=== PATIENT | female | born 1945 | race Caucasian/White ===

== ENCOUNTER 2021-07-27 12:21 | Outpatient (REF) | payer MEDICARE, SELFPAY ==
--- NOTE | ~2021-07-27 | XR_ITS ---
EXAMINATION: XR SHOULDER, RIGHT CLINICAL INFORMATION: Pain in right shoulder. COMPARISON: None TECHNIQUE: 3 views of the right shoulder. FINDINGS: Mild hypertrophic osteoarthritis of the acromioclavicular joint. Subacromial spur anteriorly. Glenohumeral joint normal. Incidental note is made of a wire-like metallic density and tubular density overlying the chest. This may be outside the patient. XR/XR shoulder RT min 2V IMPRESSION: Osteoarthritis of the right shoulder.
--- NOTE | ~2021-07-27 | XR_ITS ---
EXAMINATION: XR LUMBOSACRAL SPINE CLINICAL INFORMATION: Low back pain COMPARISON: None TECHNIQUE: Three views of the lumbosacral spine. FINDINGS: 5 nonrib-bearing lumbar vertebral bodies are visualized. There is minimal retrolisthesis of L2 on L3. Alignment is otherwise unremarkable. Lumbar vertebral body heights are maintained 18. There is scattered mild to moderate disc space narrowing throughout the lumbar spine with severe disc space narrowing at L5/S1. There are degenerative changes of the posterior elements of the lower lumbar spine. Osteophytes are present throughout the lumbar spine, most prominent at the L1/L2 level. Sacroiliac joints are grossly symmetric. Irregular pelvic calcifications are nonspecific but possibly surgical sales representative of degenerative fibroids. XR/XR lumbar spine 2-3V IMPRESSION: Moderate diffuse degenerative changes of the lumbar spine. No compression deformity.
[2021-07-27 14:14] LABS: Alanine Aminotransferase 24 U/L (0-31); Albumin Level 4.4 g/dL (3.5-5.0); Alkaline Phosphatase 58 U/L (39-117); Anion Gap 14 (12-20); Aspartate Amino Transferase 20 U/L (5-31); Bilirubin Total 0.6 mg/dL (0.0-1.0); Blood Urea Nitrogen 14 mg/dL (9-16); Calcium 9.7 mg/dL (8.4-10.2); Carbon Dioxide 27 mmol/L (22-29); Chloride 105 mmol/L (96-108); Cholesterol 196 mg/dL; Estimated Glomerular Filt Rate > 60; Glucose Fasting 97 mg/dL (60-99); HDL Cholesterol 46 mg/dL; LDL Cholesterol Calculated 115 mg/dl; Sodium 142 mmol/L (135-145); Total Protein 7.4 g/dL (6.5-8.0); Triglycerides 175 mg/dL
[2021-07-28 14:47] LABS: Vitamin D 25-OH Total 23.4 ng/mL (>30)
== END 2021-07-27 12:22 | disposition home or self-care (01) ==
LOC: HO.HMGCX 12:21
PROVIDERS: PCP Internal Medicine; Visit Provider Internal Medicine
DX: Z00.01 Encounter for general adult medical examination with abnormal findings (principal); E66.01 Morbid (severe) obesity due to excess calories; I10 Essential (primary) hypertension; I48.0 Paroxysmal atrial fibrillation; G89.29 Other chronic pain; M54.50 Low back pain, unspecified; M25.551 Pain in right hip
CPT/HCPCS: 36415; 72100; 73030; 80053; 80061; 82306

== ENCOUNTER 2023-02-06 12:26 | Outpatient (REF) | payer MEDICARE, SELFPAY ==
--- NOTE | ~2023-02-06 | MM_ITS ---
EXAMINATION: BONE DENSITOMETRY CLINICAL INDICATION: Asymptomatic menopausal state. COMPARISON: This is the patient's baseline examination. TECHNIQUE: Using a [employer] DXA System (software version: 13.1) manufactured by [employer], dual-energy x-ray absorptiometry was performed of the lumbar spine and left hip. The images are of good technical quality. Summary results are attached. FINDINGS: LEFT FEMUR, NECK: BMD 1.115 g/cm2, Z-score 1.8, T-score 0.6, normal. LEFT FEMUR, TOTAL: BMD 1.233 g/cm2, Z-score 2.7, T-score 1.8, normal. AP SPINE L1-L4: BMD 1.570 g/cm2, Z-score 3.8, T-score 3.2, normal. IDENTIFIED RISK FACTORS: Menopause, anticonvulsant, history of fracture (adult). HISTORY OF FRACTURE: Other. MEDICATIONS: Calcium supplements or multivitamin, vitamin D. MM/XR DEXA axial skeleton IMPRESSION: 1. DIAGNOSIS: Normal bone density based on the lowest T-score value of 0.6 in the femoral neck applying World Health Organization criteria. 2. 10-YEAR FRACTURE RISK PREDICTION, FRAX: According to the guidelines, FRAX calculation should only be performed on patients in the osteopenia bone density category. Therefore, FRAX was not performed on this patient. 3. Treatment Recommendations: NOF guidelines recommend consideration for treatment in postmenopausal women and men age 50 and older presenting with the following: -A hip or vertebral (clinical or morphometric) fracture. -T-score less than or equal to -2.5 at the femoral neck or spine after appropriate evaluation to exclude secondary causes. -Low bone mass at the hip or spine and a 10-year fracture probability by FRAX of greater than or equal to 3% for hip fracture or greater than or equal to 20% for major osteoporotic fracture based on the [place] adapted WHO algorithm. 4. Other Recommendations: All treatment decisions require clinical judgment and consideration of individual patient factors, including patient preferences, comorbidities, previous drug use, risk factors not captured in the FRAX model (e.g. frailty, falls, vitamin D deficiency, increased bone turnover, interval significant decline in bone density) and possible under or overestimation of fracture risk by FRAX. FUTURE SCAN RECOMMENDATION: People with diagnosed cases of osteoporosis or at high risk for fracture should have regular bone mineral density tests. For patients eligible for Medicare, routine testing is allowed once every 2 years. The testing frequency can be increased to one year for patients who have rapidly progressing disease, those who are receiving or discontinuing medical therapy to restore bone mass, or have additional risk factors.
--- NOTE | ~2023-02-06 | MM_ITS ---
EXAMINATION: MM SCREENING DIGITAL BREAST TOMOSYNTHESIS, BILATERAL CLINICAL INFORMATION: Screening. Asymptomatic. COMPARISON: Mammography: This study is compared with prior exams dating back to 2015. There are no mammograms between 2018 and 2022. TECHNIQUE: Digital breast tomosynthesis is performed in both the craniocaudal and mediolateral oblique views along with computer-aided detection (CAD). Synthesized 2D images are generated from the tomosynthesis. FINDINGS: There are scattered areas of fibroglandular density (ACR BI-RADS breast composition Category b). There are numerous calcifications in the upper outer quadrants of each breast which warrant additional mammographic imaging magnification. There are no significant masses or areas of architectural distortion in either breast. There is a cardiac loop recorder in the medial aspect of the left breast. MM/MM tomosynthesis screening BI IMPRESSION: Bilateral calcifications warrant additional imaging with magnification mammography. ASSESSMENT: BI-RADS BI-RADS 1 - Negative RECOMMENDATION: Additional views of both breasts. Radiology department staff will contact the patient for additional imaging. Additional Imaging required This examination should not preclude the clinical evaluation of a suspicious palpable abnormality. This patient's information was entered into a reminder system with a target due date for their next mammogram.
== END 2023-02-06 12:27 | disposition home or self-care (01) ==
LOC: HO.MAMMO 12:26
PROVIDERS: PCP Internal Medicine; Visit Provider Internal Medicine
DX: Z12.31 Encounter for screening mammogram for malignant neoplasm of breast (principal); Z13.820 Encounter for screening for osteoporosis; Z78.0 Asymptomatic menopausal state; Z87.39 Personal history of other diseases of the musculoskeletal system and connective tissue
CPT/HCPCS: 77063; 77067; 77080

== ENCOUNTER → 2023-02-06 12:45 | Outpatient (BNV) | payer MEDICARE, SELFPAY | PROVIDERS: PCP Internal Medicine; Visit Provider Radiology Diagnostic Radiology | DX: Z12.31 Encounter for screening mammogram for malignant neoplasm of breast (principal) | CPT/HCPCS: 77063; 77067 ==

== ENCOUNTER 2023-02-27 11:27 | Outpatient (AMB) | payer MEDICARE, SELFPAY ==
--- NOTE | 2023-02-27 11:58 | MHC.PC.OV ---
Vital Signs 02/27/23 12:01 BMI Reason not done Patient refused/unable BP 110/60 Blood Pressure Location Lt brachial Position Sitting Pulse 75 Pulse Source Pulse Oximeter Pulse Oximetry (%) 98 Oxygen Delivery Method Room Air Intake Visit Reasons: Rt shoulder pain due to a fall Intake Note: Pt is here today to f/u labs and c/o Rt shoulder pain due to a fall in the bathroom at home Allergies lipitor Allergy (Unknown, Uncoded 02/28/23 19:35) muscle pain Medication List - Last Reconciled 02/27/23 by Eli Wills MD acetaminophen ER (Tylenol Arthritis Pain) 1,300 mg PO Q8H PRN albuterol sulfate 90 mcg/actuation 2 puffs inhalation Q6H PRN amlodipine 10 mg PO DAILY Ca carb-Ca gluc-Mg ox-Mg gluco 500 mg calcium -250 mg (Calcium Magnesium) tabs PO cholecalciferol (vitamin D3) 50 mcg PO DAILY cyanocobalamin (vitamin B-12) 1,000 mcg PO DAILY fluticasone propionate 50 mcg/actuation 1 spray intranasal DAILY furosemide (Lasix) 20 mg PO DAILY gabapentin mg PO losartan 100 mg PO DAILY pyridoxine (vitamin B6) 100 mg PO ONCE rivaroxaban (Xarelto) 20 mg PO DAILY Tobacco use date assessed: 02/27/23 Fall risk assessment: 1 Fall in past year Last assessed Fall Risk: 02/27/23 Dental Screening Dental Screen Date: 02/27/23 Did you have a dental visit in the last 12 months?: Yes Did you have a dental problem in the last 6 months where you did not have access to dental care?: No Was dental information given to patient?: Patient has dentist HPI Rt shoulder pain due to a fall HPI Details 78-year-old lady here today complaining of persistent pain in her right shoulder, worse with doing overhead movement with right hand. Unable to do carry or lift anything heavy with her right hand. This started after she slipped in the bathroom and landed on her right side approximately a month ago. 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 Mother No problems noted. Brother Hypertension Atrial fibrillation Maternal Grandmother Breast cancer Social History Housing: House Patient Tobacco Use Status: Former Tobacco user Years Smoked: 15 yrs e-Cigarette/Vaping Use: Never Used service: No Current occupational status: retired Cognitive needs: No Hearing needs: No Vision needs: Yes Questionnaire Thrive Questionnaire Date Thrive assessed: 10/26/22 FENG-7 AMB Questionnaire FENG-7 Date FENG - 7 assessed: 10/26/22 Source: Developed by Drs. Jay Sommer, Roz Mckee, Wally Shabazz and colleagues, with an educational bernardino from [employer]. Review of Systems Const All systems reviewed & are unremarkable except as noted in HPI and below Physical exam (Primary Care) Vital Signs: Last Vital Signs Pulse 75 02/27/23 12:01 BP 110/60 02/27/23 12:01 Pulse Ox 98 02/27/23 12:01 Oxygen Delivery Method Room Air 02/27/23 12:01 Tobacco/Smoking Status: Tobacco use Status Tobacco use date assessed 02/27/23 02/27/23 12:01 Patient Tobacco Use Status Former Tobacco user 02/27/23 12:01 e-Cigarette/Vaping Use Never Used 02/27/23 12:01 Thrive Assessment: Date of Thrive Assessment Date Thrive assessed 10/26/22 02/27/23 12:01 Const General: comfortable, no acute distress, awake and Physically active Nutritional Appearance: obese HENMT Head: Yes normocephalic and Yes atraumatic Ears: hearing grossly normal bilaterally and external ears normal General nose exam: Normal external nose present Face and sinus: Yes face symmetric Mouth: Normal oral and palatal mucosa present, oropharynx normal and moist mucous membranes Resp Auscultation: clear to auscultation bilaterally Cardio Rate: regular rate Rhythm: regular rhythm Heart sounds: S1 normal heart sound present and S2 normal heart sound present Back/Spine/Pelvis Back: No back tenderness Skin General skin exam: no rashes or lesions noted Neuro General: no focal motor deficits Extrem Other: + Neer's test on right, no gross bone bone deformity noted Assessment and Plan Assessment & Plan (1) Pain in right shoulder: Code(s): M25.511 - Pain in right shoulder Plan: X-ray of right shoulder ordered and referred for physical therapy. Advised patient to notify as if no improvement with physical therapy and may warrant orthopedic consult Orders: Orders PT Evaluation and Treatment 02/27/23 M25.511 - Pain in right shoulder XR shoulder RT min 2V 02/27/23 M25.511 - Pain in right shoulder Coding Level of Care Code Est Pt Level 3 (71831) Diagnoses Pain in right shoulder M25.511
[2023-02-27 12:01] VITALS: BP 110/60; PULSE 75; O2SAT 98
== END 2023-02-27 12:22 | disposition home or self-care (01) ==
PROVIDERS: PCP Internal Medicine; Visit Provider Internal Medicine
DX: M25.511 Pain in right shoulder (principal)
CPT/HCPCS: 99213

== ENCOUNTER 2023-02-27 12:23 | Outpatient (REF) | payer MEDICARE, SELFPAY ==
--- NOTE | ~2023-02-27 | XR_ITS ---
EXAMINATION: XR SHOULDER, RIGHT CLINICAL INFORMATION: Right shoulder pain COMPARISON: 07/27/2021 TECHNIQUE: Four views of the right shoulder. FINDINGS: Redemonstration of moderate osteoarthritis with hypertrophic change involving the acromioclavicular joint. Subacromial spur. Degenerative changes in the imaged upper thoracic spine. Glenohumeral alignment is preserved. Faint soft tissue calcification adjacent to the greater tuberosity. XR/XR shoulder RT min 2V IMPRESSION: Osteoarthritis of the right shoulder.
== END 2023-02-27 12:24 | disposition home or self-care (01) ==
LOC: HO.HMGCX 12:23
PROVIDERS: PCP Internal Medicine; Visit Provider Internal Medicine
DX: M25.511 Pain in right shoulder (principal)
CPT/HCPCS: 73030

== ENCOUNTER 2023-03-06 13:11 | Outpatient (REF) | payer MEDICARE, SELFPAY ==
--- NOTE | ~2023-03-06 | MM_ITS ---
EXAMINATION: MM DIAGNOSTIC DIGITAL MAMMOGRAPHY, BILATERAL CLINICAL INFORMATION: Diagnostic for evaluation of bilateral calcifications upper outer quadrant of each breast. COMPARISON: Mammography: 02/06/2023, [facility] 03/31/2015, and 03/25/2014. TECHNIQUE: Digital mammography is performed in the following views: 2-D spot magnification views bilateral breasts in the CC projection x2, and ML projections x2. FINDINGS: There are scattered areas of fibroglandular density (ACR BI-RADS breast composition Category b). There are scattered regional loosely grouped calcifications within both breasts in the upper outer quadrants, similar to prior exams from 2017, 2014, and 2013, which are symmetric bilaterally and highly suggestive of benign sclerosing adenosis, although no prior magnification views are available to compare directly. The calcifications demonstrate loose grouping, and are predominantly either punctate or mildly pleomorphic. No linear or branching forms. No ductal distribution identified. The overall distribution and symmetry suggests benign sclerosing adenosis, which grossly appears similar to exams dating back to 2013. MM/MM diagnostic mammo BI IMPRESSION: Probably benign findings bilaterally relating to symmetric loosely grouped calcifications in the upper outer quadrants of both breasts, fairly classic appearance of sclerosing adenosis, which is also unchanged from 2014 grossly, although no prior magnification views are available for direct comparison. Recommend the patient return in 6 months for comparison magnification views of both breasts using similar technique. ASSESSMENT: BI-RADS BI-RADS 3 - Probably benign finding(s) - 6 month follow-up suggested RECOMMENDATION: 6 Month F/U This patient's information was entered into a reminder system with a target due date for their next mammogram.
== END 2023-03-06 13:12 | disposition home or self-care (01) ==
LOC: HO.MAMMO 13:11
PROVIDERS: PCP Internal Medicine; Visit Provider Internal Medicine
DX: R92.1 Mammographic calcification found on diagnostic imaging of breast (principal)
CPT/HCPCS: 77062; 77066

== ENCOUNTER → 2023-03-06 13:30 | Outpatient (BNV) | payer MEDICARE, SELFPAY | PROVIDERS: PCP Internal Medicine; Visit Provider Radiology Diagnostic Radiology | DX: R92.1 Mammographic calcification found on diagnostic imaging of breast (principal) | CPT/HCPCS: 77066 ==

== ENCOUNTER 2023-04-24 08:00 | Outpatient (RCR) | payer MEDICARE, SELFPAY ==
--- NOTE | 2023-04-12 08:42 | MHC.PT.EP ---
[facility] [place] Office [place] Office [place] Office [address] Reese Boyce [address] [phone] F: [phone] F: [phone] F: [phone] F: [phone] Physical Therapy Plan of Care Date of Evaluation: 04/12/23 Date of Surgery: n/a Diagnosis: pain in R shoulder Assessment: Patient is a 78 year old female presenting to PT with complaints of pain in her R shoulder. Pt reports onset of pain began about 3 months ago due to falling on her shoulder. She presents today with impairments in pain, ROM, shoulder strength, posture. 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 Pt expresses fdc goal of reducing pain, and is motivated to work towards this in PT. Clinical presentation today is most consistent with signs and sx associated with R shoulder pain and pt will benefit from skilled PT 2 week x 4 weeks to address the following problems and impairments noted upon evaluation: pain, ROM, shoulder strength, posture. These problems limit the patient with the following functional activities: reaching, lifting, ADLs, walking her dog. The prescribed treatment plan of care is medically necessary. Co-morbidities of HTN, afib were identified and taken into considerations of plan of care. Pt was educated on HEP, role of PT, prognosis, POC. Frequency and Duration: The patient will be seen 2 x week x 4 weeks Short Term Goals: Pt will demonstrate improved shoulder ROM to equal B in 2 weeks. Pt will demonstrate improved shoulder MMT strength by 1/3 grade in 2 weeks. Pt will demonstrate improved postural awareness by sitting with biomechanically correct posture without cues throughout session to improve overall postural function 2 weeks. Detention Goals: Pt will demonstrate improved SPADI score by 13 points in 4 weeks for improved functional mobility. Pt will demonstrate ability to walk her dog on a leash with min to no pain in 4 weeks for return to PLOF. Pt will demonstrate ability to reach and lift with min to no pain in 4 weeks for improved tolerance to house hold duties. Treatment Plan: Modalities to reduce pain, spasms and effusion. Manual therapy to restore motion and function. Therapeutic exercise to improve strength and flexibility. Neuromuscular re-education for posture and balance. Therapeutic activities to return to functional activities of daily living. Electronically signed by: Adry Soto, PT, DPT, ATC Please sign and return to therapist. Thank you for your referral.
--- NOTE | 2023-05-28 06:57 | MHC.PT.DC ---
[facility] [place] Office [place] Office [place] Office [address] Reese Boyce [address] [facility] [phone] F: [phone] F: [phone] F: [phone] F: [phone] Physical Therapy Discharge Report Diagnosis: pain in R shoulder Date of Surgery: n/a Date of Evaluation: 04/12/23 Date of Discharge: 05/28/23 Treatments to Date: 2 Cancellations to Date: 0 No Shows to Date: 0 Discharge Status: Discharge Summary: Pt has not returned to skilled PT in >30 days and therefore to be d/c per policy. Electronically signed by: Adry Soto, PT, DPT, ATC Please sign and return to therapist. Thank you for your referral.
== END 2023-05-28 06:57 | disposition home or self-care (01) ==
LOC: HO.PTCHIC 08:00
PROVIDERS: PCP Internal Medicine; Visit Provider Internal Medicine
DX: M25.511 Pain in right shoulder (principal)
CPT/HCPCS: 97110; 97161

== ENCOUNTER 2023-08-16 08:10 | Outpatient (AMB) | payer MEDICARE, SELFPAY ==
--- NOTE | 2023-08-16 08:14 | A.OFFPC_ITS ---
Vital Signs 08/16/23 08:16 BMI Reason not done Patient refused/unable BP 140/60 H Pulse 80 Pulse Source Pulse Oximeter Pulse Oximetry (%) 99 Oxygen Delivery Method Room Air Intake Visit Reasons: discuss recent u/s Intake Note: Pt is here today to discuss recent u/s results Allergies lipitor Allergy (Unknown, Uncoded 08/16/23 08:18) muscle pain Medication List - Last Reconciled 08/16/23 by Eli Wills MD acetaminophen ER (Tylenol Arthritis Pain) 1,300 mg PO Q8H PRN albuterol sulfate 90 mcg/actuation 2 puffs inhalation Q6H PRN amlodipine 10 mg PO DAILY Ca carb-Ca gluc-Mg ox-Mg gluco 500 mg calcium -250 mg (Calcium Magnesium) tabs PO cholecalciferol (vitamin D3) 50 mcg PO DAILY cyanocobalamin (vitamin B-12) 1,000 mcg PO DAILY fluticasone propionate 50 mcg/actuation 1 spray intranasal DAILY furosemide (Lasix) 20 mg PO DAILY gabapentin mg PO losartan 100 mg PO DAILY pyridoxine (vitamin B6) 100 mg PO ONCE rivaroxaban (Xarelto) 20 mg PO DAILY Tobacco use date assessed: 08/16/23 Fall risk assessment: 2 + Falls in past year Last assessed Fall Risk: 08/16/23 Dental Screening Dental Screen Date: 08/16/23 Did you have a dental visit in the last 12 months?: Yes Did you have a dental problem in the last 6 months where you did not have access to dental care?: Yes Was dental information given to patient?: Patient has dentist HPI discuss recent u/s HPI Details 78-year-old lady here today for follow-u p after a recent finding of a thyroid nodule on a CT angiography of chest 07/09/2023 done at [facility] . It measures 1.9 cm in the right thyroid. Patient denies having any symptoms of dysphagia, no pain on anterior neck. Latest TSH drawn at [facility] in November 2022 was 1.83 IU/mL. 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 Mother No problems noted. Brother Hypertension Atrial fibrillation Maternal Grandmother Breast cancer Social History Housing: House Patient Tobacco Use Status: Former Tobacco user Years Smoked: 15 yrs e-Cigarette/Vaping Use: Never Used service: No Current occupational status: retired Cognitive needs: No Hearing needs: No Vision needs: Yes Questionnaire PHQ-9 Over the last 2 weeks, how often have you been bothered by any of the following problems? 1. Little interest or pleasure in doing things: not at all 2. Feeling down, depressed, or hopeless: not at all 3. Trouble falling or staying asleep, or sleeping too much: not at all 4. Feeling tired or having little energy: not at all 5. Poor appetite or overeating: not at all 6. Feeling bad about yourself - or that you are a failure or have let yourself or your family down: not at all 7. Trouble concentrating on things, such as reading the newspaper or watching television: not at all 8. Moving or speaking so slowly that other people could have noticed. Or the opposite - being so fidgety or restless that you have been moving around a lot more than usual: not at all 9. Thoughts that you would be better off or of hurting yourself in some way: not at all Total score: 0 Depression Screening Interpretation: Negative Depression Screening Done: Yes 14510 - PHQ-9 Billing: Yes Source: Developed by Drs. Jay Sommer, Roz Mckee, Wally Shabazz and colleagues, with an educational bernardino from [employer]. Thrive Questionnaire Date Thrive assessed: 08/16/23 I am a: Patient What is your living situation today?: I have a steady place to live Within the past 12 months, did the food you bought not last and you didn't have the money to get more?: Never true Within the past 12 months, did you worry whether your food would run out before you got money to buy more?: Never true Do you have trouble paying for medicines?: No Do you have trouble getting transportation to medical appointments?: No Do you have trouble paying your heating and electricity bill?: No Do you have trouble taking care of your child, family member or friend?: No Do you have trouble with day-to-day activities such as bathing, preparing meals, shopping, managing finances, etc.?: No Are you currently unemployed and looking for a job?: No Are you interested in more education?: No THRIVE Score: 0 AUDIT C Alcohol Use Questionnaire (AUDIT-C) 1. How often do you have a drink containing alcohol?: Never Total Score: 0 FENG-7 AMB Questionnaire FENG-7 Date FENG - 7 assessed: 08/16/23 Feeling nervous, anxious, or on edge: 0 = Not at all Not being able to stop or control worryin = Not at all Worrying too much about different things: 0 = Not at all Trouble relaxin = Not at all Being so restless that it is hard to sit still: 0 = Not at all Becoming easily annoyed or irritable: 0 = Not at all Feeling afraid as if something awful might happen: 0 = Not at all Total FENG-7 score (0-4 normal; 5-9 mild; 10-14 moderate; 15-21 severe): 0 Source: Developed by Drs. Jay Sommer, Roz Mckee, Wally Shabazz and colleagues, with an educational bernardino from [employer]. FENG-7 Assessment Billing FENG-7 Assessment Tool: FENG-7 Assessment 56188 Review of Systems Const Denies body aches, Denies fatigue, Denies headache(s), Denies lethargy, Denies weight gain and Denies weight loss ENT Denies dysphagia, Denies dizziness, Denies headache(s) and Denies hoarseness Card Denies chest pain, Denies rapid heart rate, Denies lightheadedness and Denies dyspnea Resp Denies cough and Denies dyspnea GI Denies abdominal pain, Denies change in bowel habits and Denies dysphagia Musc Denies muscle weakness Neuro Denies dizziness, Denies headache(s) and Denies tremor(s) Psych Reports no additional complaints Endo Denies fatigue Physical exam (Primary Care) Vital Signs: Last Vital Signs Pulse 80 08/16/23 08:16 BP 140/60 H 08/16/23 08:16 Pulse Ox 99 08/16/23 08:16 Oxygen Delivery Method Room Air 08/16/23 08:16 Tobacco/Smoking Status: Tobacco use Status Tobacco use date assessed 08/16/23 08/16/23 08:18 Patient Tobacco Use Status Former Tobacco user 08/16/23 08:18 e-Cigarette/Vaping Use Never Used 08/16/23 08:18 PHQ-9: PHQ-9 Score PHQ-9: Total score 0 08/16/23 08:37 Depression Screening Interpretation: Negative Thrive Assessment: Date of Thrive Assessment Date Thrive assessed 08/16/23 08/16/23 08:18 Const General: no acute distress and alert Nutritional Appearance: obese Orientation/consciousness: patient oriented x3 HENMT Head: Yes normocephalic Face and sinus: Yes face symmetric Mouth: Normal oral and palatal mucosa present, oropharynx normal and moist mucous membranes Eyes General: appearance normal, both eyes and all related structures Neck Other: Thyroid gland nonpalpable Neck: Yes full ROM, Yes no lymphadenopathy and Yes supple Resp Auscultation: clear to auscultation bilaterally Cardio Rate: regular rate Rhythm: regular rhythm Heart sounds: S1 normal heart sound present and S2 normal heart sound present Skin General skin exam: no rashes or lesions noted Neuro General: patient oriented x3, gait normal, tone normal and moves all extremities Cranial nerves: Yes CN's II-XII intact bilaterally Cognition (Neuro): normal cognition Gait exam (Neuro): Normal gait present Motor exam (neuro): 5/5 motor strength present throughout Assessment and Plan Assessment & Plan (1) Thyroid nodule greater than or equal to 1 cm in diameter incidentally noted on imaging study: Code(s): E04.1 - Nontoxic single thyroid nodule Plan: Thyroid ultrasound ordered , reviewed test results from [facility] from November 2022 which showed TSH within normal limits. endocrine consult ordered Orders: Orders US thyroid 08/16/23 E04.1 - Nontoxic single thyroid nodule Referrals Endocrinology Referral E04.1 - Nontoxic single thyroid nodule Coding Level of Care Code Est Pt Level 4 (71508) Diagnoses Thyroid nodule greater than or equal to 1 cm in diameter incidentally noted on imaging study E04.1 Additional Codes FENG-7 Assessment Billing - FENG-7 Assessment Tool: FENG-7 Assessment 05780 ([id number])
[2023-08-16 08:16] VITALS: BP 140/60; PULSE 80; O2SAT 99
== END 2023-08-16 09:21 | disposition home or self-care (01) ==
LOC: HO.HMGC 08:10
PROVIDERS: PCP Internal Medicine; Visit Provider Internal Medicine
DX: E04.1 Nontoxic single thyroid nodule (principal)
CPT/HCPCS: 99214

== ENCOUNTER 2023-08-16 10:53 | Outpatient (REF) | payer MEDICARE, SELFPAY ==
--- NOTE | ~2023-08-16 | US_ITS ---
EXAMINATION: US THYROID CLINICAL INFORMATION: Incidental finding of a thyroid nodule on right lobe 1.[address] of the chest. COMPARISON: None available. TECHNIQUE: Linear transducer jerez-scale and color Doppler examination with attention to the region of the thyroid. FINDINGS: SIZE: Measurements of the thyroid lobes and nodules are given in sagittal, anteroposterior and transverse dimensions respectively. Right Thyroid Lobe: 4.3 x 2.6 x 2.1 cm, volume 11.8 mL. Parenchyma: The gland echotexture is heterogeneous. Thyroid vascularity is normal. Left Thyroid Lobe: 3.9 x 1.5 x 1.4 cm, volume 4.5 mL. Parenchyma: The gland echotexture is homogeneous. Thyroid vascularity is normal. Isthmus: 0.27 cm in maximum AP dimension. Estimated total number of nodules greater than or equal to 1 cm: 1. Hub Bander nodules are described as follows: 1. Location: Right inferior. Size: 0.90 x 0.45 x 0.13 cm, volume 0.27 mL. Nodule characteristics: Composition: Mixed cystic and solid (1). Echogenicity: Hypoechoic (2). Shape: Not taller than wide (0). Margins: Smooth (0). Echogenic Foci: None (0). ACR TI-RADS total points: 3 ACR TI-RADS category: 3 2. Location: Right mid. Size: 2.1 x 1.8 x 1.8 cm, volume 3.6 mL. Nodule characteristics: Composition: Mixed cystic and solid (1). Echogenicity: Anechoic (0). Shape: Not taller than wide (0). Margins: Smooth (0). Echogenic Foci: None (0). ACR TI-RADS total points: 1 ACR TI-RADS category: 0 NODES: No lymphadenopathy is seen in the tissue surrounding the thyroid gland. US/US thyroid IMPRESSION: No significant abnormality is seen. The thyroid nodule on the right is a simple benign-appearing cyst. No follow-up is needed. ACR TI-RADS RECOMMENDATION REFERENCE: Ultrasound-guided fine-needle aspiration, followup ultrasound, no further follow up. * TR1 (0 point) and TR2 (2 points): No FNA or follow up. * TR3 (3 points): FNA if more than or equal to 2.5 cm in maximum dimension, followup ultrasound in 1, 3 and 5 years if 1.5 to 2.4 cm in maximum dimension. * TR4 (4-6 points): FNA if more than or equal to 1.5 cm in maximum dimension, followup ultrasound in 1, 2, 3 and 5 years if 1 to 1.4 cm in maximum dimension. * TR5 (more than or equal to 7 points): FNA if more than or equal to 1 cm in maximum dimension, followup ultrasound every year for 5 years if 0.5 to 0.9 cm in maximum dimension. * TR3, TR4 or TR5 nodules that are below the size threshold for followup receive no follow up.
== END 2023-08-16 10:54 | disposition home or self-care (01) ==
LOC: HO.HMGCX 10:53
PROVIDERS: PCP Internal Medicine; Visit Provider Internal Medicine
DX: E04.1 Nontoxic single thyroid nodule (principal)
CPT/HCPCS: 76536

== ENCOUNTER 2023-08-30 12:34 | Outpatient (REF) | payer MEDICARE, SELFPAY ==
--- NOTE | ~2023-08-30 | MM_ITS ---
EXAMINATION: MM SCREENING DIGITAL BREAST TOMOSYNTHESIS, BILATERAL CLINICAL INFORMATION: Diagnostic 6 month follow-up (first) for evaluation of bilateral probably benign diffuse calcifications upper outer quadrant of each breast. COMPARISON: Mammography: 03/06/2023 (BI-RADS 3), and 02/06/2023 (BI-RADS 0). 09/20/2017, 03/31/2015, 03/15/2014 from [facility]. TECHNIQUE: Digital breast tomosynthesis is performed in both the craniocaudal and mediolateral oblique views along with computer-aided detection (CAD). Synthesized 2D images are generated from the tomosynthesis. In addition, 2-D digital spot magnification views were performed right CC, right MLO, left CC x2, and left ML projections. Right CC nipple in profile full field view was also provided. Left extra MLO full-field anterior compression view was provided. FINDINGS: There are scattered areas of fibroglandular density (ACR BI-RADS breast composition Category b). There are scattered regional loosely grouped regional calcifications within both breasts in the upper outer quadrants, similar to prior exams from 03/06/2023, 02/06/2023, 2017, 2014, and 2013, which are symmetric bilaterally and highly suggestive of benign sclerosing adenosis, without change on the recent magnification views. The calcifications demonstrate loose grouping, and are predominantly either punctate or minimally pleomorphic. No linear or branching forms. No ductal distribution identified. The overall distribution and symmetry suggests benign sclerosing adenosis, which grossly appears similar to exams dating back to 2014. There has been no aggressive change. Loop recorder again noted in the upper posteromedial left breast. No evidence of suspicious mass, new area of architectural distortion, skin or axillary abnormality. The overall parenchymal pattern of both breasts is stable from prior exams. MM/MM tomosynthesis screening BI IMPRESSION: No mammographic evidence of malignancy. There has been no significant interval change. -Stable symmetric loosely grouped regional calcifications in the upper outer quadrants of both breasts, fairly classic appearance of sclerosing adenosis, which is also unchanged from 2014 grossly. No aggressive changes identified. These remain probably benign, and six-month interval follow-up recommended to ensure stability to include spot magnification views in both breasts. ASSESSMENT: BI-RADS BI-RADS 3 - Probably benign finding(s) - 6 month follow-up suggested RECOMMENDATION: 6 Month F/U This examination should not preclude the clinical evaluation of a suspicious palpable abnormality. This patient's information was entered into a reminder system with a target due date for their next mammogram.
== END 2023-08-30 12:35 | disposition home or self-care (01) ==
LOC: HO.MAMMO 12:34
PROVIDERS: PCP Internal Medicine; Visit Provider Internal Medicine
DX: Z12.31 Encounter for screening mammogram for malignant neoplasm of breast (principal)
CPT/HCPCS: 77063; 77067

== ENCOUNTER → 2023-08-30 13:00 | Outpatient (BNV) | payer MEDICARE, SELFPAY | PROVIDERS: PCP Internal Medicine; Visit Provider Radiology Diagnostic Radiology | DX: Z12.31 Encounter for screening mammogram for malignant neoplasm of breast (principal) | CPT/HCPCS: 77063; 77067 ==

== ENCOUNTER 2024-03-04 10:37 | Outpatient (REF) | payer MEDICARE, SELFPAY ==
--- NOTE | ~2024-03-04 | MM_ITS ---
EXAMINATION: MM DIAGNOSTIC DIGITAL BREAST TOMOSYNTHESIS, BILATERAL CLINICAL INFORMATION: Six-month follow-up (second, for 1 year stability) bilateral symmetric regional calcifications upper outer breasts. COMPARISON: Mammography: 08/30/2023. 03/06/2023. 02/06/2023 (BI-RADS 0). -09/20/2017, 03/31/2015, 03/15/2014 from [facility]. TECHNIQUE: Digital breast tomosynthesis is performed in both the craniocaudal and mediolateral oblique views along with computer-aided detection (CAD). Synthesized 2D images are generated from the tomosynthesis. In addition to standard views, added full-field 3-D right CC view was obtained, as well as 2-D spot magnification CC and ML views of both breasts. FINDINGS: There are scattered areas of fibroglandular density (ACR BI-RADS breast composition Category b). Redemonstration of unchanged appearance and morphology of bilateral regional loosely grouped calcifications both breasts in the upper outer quadrant, similar to prior exams dating back to 2014. Findings are again highly suggestive of benignity, with no aggressive changes. One-year follow-up recommended. Loop recorder again noted in the upper posterior medial left breast. No evidence of suspicious mass, developing area of architectural distortion, suspicious new calcifications, or areas of architectural distortion in either breast. No skin or axillary abnormalities. MM/MM tomosynthesis diagnostic BI IMPRESSION: -No mammographic evidence of malignancy. There has been no significant interval change. -Stable symmetric loosely grouped regional calcifications in the upper outer quadrants of both breasts, fairly classic appearance of sclerosing adenosis, which is also unchanged from 2014 grossly. No aggressive changes identified. These remain probably benign, and 1 interval follow-up diagnostic mammography to include bilateral spot magnification views is recommended to establish a 2 year stability and definitive benignity. ASSESSMENT: BI-RADS BI-RADS 3 - Probably benign finding(s) - 12 month follow-up suggested RECOMMENDATION: 12 month diagnostic follow up Results were provided to the patient at time of visit by the technologist. This patient's information was entered into a reminder system with a target due date for their next mammogram. Electronically signed by: Eliud Kaplan MD 03/04/2024 12:17 PM EDT
== END 2024-03-04 10:38 | disposition home or self-care (01) ==
LOC: HO.MAMMO 10:37
PROVIDERS: Visit Provider Internal Medicine
DX: R92.1 Mammographic calcification found on diagnostic imaging of breast (principal)
CPT/HCPCS: 77062; 77066

== ENCOUNTER → 2024-03-04 11:00 | Outpatient (BNV) | payer MEDICARE, SELFPAY | PROVIDERS: Visit Provider Radiology Diagnostic Radiology | DX: R92.1 Mammographic calcification found on diagnostic imaging of breast (principal) | CPT/HCPCS: 77066; G0279 ==

== ENCOUNTER 2024-08-21 07:59 | Outpatient (REF) | payer MEDICARE, SELFPAY ==
--- OUTSIDE RECORDS SUMMARY | 2024-08-21 09:16 | XMS_ITS | Clinical Summary ---
Author Organization [address] [facility] Address [address] [place] [address] Phone Care Team Providers Care Mix House Operator Name Role Phone Eli Wills MD Primary Care Provider [phone] Allergies Active Allergy Reactions Criticality Noted Date [...] of breath) 06/21/2022 Chronic diastolic heart failure ([facility] V24, CM S/[facility] V28) 08/24/2021 Essential hypertension 07/29/2020 Morbid obesity ([facility] V24, [facility] V28) 2020 RONEN (obstructive sleep apnea) 07/29/2020 PAF (paroxysmal atrial fibri llation) ([facility] V24, [facility] V28) 07/29/2020 Encounters Date Type Department Care Team Description 08/05/2024 Telephone [facility] - [address] [place] [phone] Julia Ham MD Procedure (ILR Removal ) 07/24/2024 8:40 AM EDT Office Visit [facility] Cardiology [facility] - [address] [place] [phone] Rupali Vazquez PA PAF (paroxysmal atrial fibrillation) ([facility] V24, [facility] V28) (Primary Dx); Essential hypertension; RONEN (obstructive sleep apnea); Chronic diastolic heart failure (CMS/HCC V24, CMS/HCC V28); Morbid obesity ([facility]/HCC V24, CMS/HCC V28); Encounter for loop recorder at end of battery life from Last 3 Months Immunizations Name Administration Dates Next Due [facility] SARS-CoV-2 COVID-19, mRNA, LNP-S, preservative free 09/04/2020,08/14/2020 [...] GEMUSE QTc 443 ms GEMUSE P Wave Holt 74 degrees GEMUSE R Holt -43 degrees GEMUSE T Holt 10 degrees GEMUSE ECG Interpretation Sinus bradycardia [...] Documents on File Type Date Recorded 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
[2024-08-21 10:09] LABS: MANUAL DIFF FLAG NO
[2024-08-21 10:22] LABS: Basophils Percent Auto 0.6 % (0-2); Eosinophils Absolute Auto 0.3 X10*3/uL (0.0-0.4); Eosinophils Percent Auto 3.6 % (0-4); Hematocrit 43.6 % (37.0-47.0); Hemoglobin 14.9 g/dl (12.0-16.0); Imm Gran Abs Auto 0.02 X10*3/uL (0.00-0.03); Imm Gran Pct Auto 0.3 % (0.0-0.4); Lymphocytes Absolute Auto 2.3 X10*3/uL (1.2-4.9); Lymphocytes Percent Auto 32.8 % (20-40); Mean Corpuscular HGB Conc 34.2 g/dl (31.0-35.0); Mean Corpuscular Volume 93.6 fL (80.0-98.0); Mean Platelet Volume 9.6 fL (9.4-12.3); Monocytes Absolute Auto 0.7 X10*3/uL (0.1-1.2); Monocytes Percent Auto 10.2 % (2-11); Neutrophils Absolute Auto 3.6 x10*3/uL (2.0-8.3); Neutrophils Percent Auto 52.5 % (45-73); Platelet Count 312 X10*3/uL (160-400); Red Blood Count 4.66 X10*6/uL (4.20-5.50); Red Cell Distribution Width 12.4 % (11.0-16.0); White Blood Count 6.9 X10*3/uL (4.8-10.8)
[2024-08-21 12:10] LABS: Alanine Aminotransferase 38 U/L (0-31); Anion Gap 14 (12-20); Aspartate Amino Transferase 33 U/L (5-31); Blood Urea Nitrogen 15 mg/dL (9-16); Calcium 9.8 mg/dL (8.4-10.2); Carbon Dioxide 25 mmol/L (22-29); Chloride 106 mmol/L (96-108); Cholesterol 214 mg/dL (<200); Estimated Glomerular Filt Rate > 60; Glucose Fasting 96 mg/dL (60-99); HDL Cholesterol 50 mg/dL (>40); LDL Cholesterol Calculated 121 mg/dL (<100); Sodium 141 mmol/L (135-145); TSH reflex Free T4 1.45 uIU/mL (0.32-4.0); Triglycerides 216 mg/dL (<150); Vitamin D 25-OH Total 24.2 ng/mL (>30)
== END 2024-08-21 08:00 | disposition home or self-care (01) ==
LOC: HO.HMGCLDS 07:59
PROVIDERS: PCP Internal Medicine; Visit Provider Internal Medicine
DX: J01.90 Acute sinusitis, unspecified (principal); I10 Essential (primary) hypertension; E66.01 Morbid (severe) obesity due to excess calories; Z68.41 Body mass index [BMI] 40.0-44.9, adult; E04.1 Nontoxic single thyroid nodule; R09.81 Nasal congestion; I48.0 Paroxysmal atrial fibrillation; Z79.01 Long term (current) use of anticoagulants; Z79.2 Long term (current) use of antibiotics; Z96.653 Presence of artificial knee joint, bilateral
CPT/HCPCS: 36415; 80048; 80061; 82306; 84443; 84450; 84460; 85025; 96127; 99212

== ENCOUNTER 2024-08-21 07:59 | Outpatient (AMB) | payer MEDICARE, SELFPAY ==
--- NOTE | 2024-08-21 08:06 | MHC.PC.OV ---
Vital Signs 08/21/24 08:08 Height 5 ft 10 in Weight 289 lb BMI 41.5 BP 112/70 Blood Pressure Location Rt brachial Position Sitting Respiration 17 Pulse 66 Pulse Source Pulse Oximeter Temp 97.5 F Temp Source Oral Pulse Oximetry (%) 96 Oxygen Delivery Method Room Air Intake Visit Reasons: Blood pressure and Cardiac Pressure check Allergies lipitor Allergy (Unknown, Uncoded 08/21/24 08:22) muscle pain Medication List - Last Reconciled 08/21/24 by Eli Wills MD acetaminophen ER (Tylenol Arthritis Pain) 1,300 mg PO Q8H PRN albuterol sulfate 90 mcg/actuation 2 puffs inhalation Q6H PRN amlodipine 10 mg PO DAILY calcium carb,gluc-mag gluc,ox 500 mg calcium- 250 mg (Calcium Magnesium) tabs PO cholecalciferol (vitamin D3) 50 mcg PO DAILY cyanocobalamin (vitamin B-12) 1,000 mcg PO DAILY fluticasone propionate 50 mcg/actuation 1 spray intranasal DAILY furosemide (Lasix) 20 mg PO DAILY gabapentin mg PO losartan 100 mg PO DAILY pyridoxine (vitamin B6) 100 mg PO ONCE rivaroxaban (Xarelto) 20 mg PO DAILY sotalol 120 mg PO BID Tobacco use date assessed: 08/21/24 Fall risk assessment: No Falls in past year Last assessed Fall Risk: 08/21/24 Dental Screening Dental Screen Date: 08/21/24 Did you have a dental visit in the last 12 months?: Yes Did you have a dental problem in the last 6 months where you did not have access to dental care?: Yes Was dental information given to patient?: Patient has dentist HPI Blood pressure and Cardiac Pressure check HPI Details 79-year-old lady with history of paroxysmal atrial fibrillation status post cardiac ablation currently on sotalol and Xarelto, has bilateral osteoarthritis status post bilateral knee arthroplasty needing antibiotic prophylaxis prior to dental procedure, has obstructive sleep apnea noncompliant with CPAP, morbid obesity, and hypertension, here today complaining of frontal headaches, which has been present now on and off for the last several days. Initially thought that it was her blood pressure being elevated. Blood pressure here however is within normal limits. Headache is accompanied by nasal congestion and postnasal drainage. She has bee taking cetirizine only every now and then but has not been using it recently. She also has Flonase at home but ran out of her medication. Denies any fever, no lightheadedness, no shortness of breath or chest pain . She has an appointment to see her new orthopedic surgeon but needs a prescription refill for her antibiotic prophylaxis prior to dental work, was taking amoxicillin in the past. Recently saw her performance management consultant, Dr. Sharpe who continued her on her Xarelto and sotalol and referred her to weight management for help with losing weight. [facility] Medical History (Updated 08/21/24 @ 08:45 by Eli Wills MD) Need for antibiotic prophylaxis for dental procedure Anticoagulated on Xarelto Thyroid nodule greater than or equal to 1 cm in diameter incidentally noted on imaging study Immunization refused Refused pneumococcal vaccination History of atrial fibrillation Tick bite Hx of osteopenia Post-nasal drainage History of cardioversion Peripheral neuropathy Morbid obesity Essential hypertension Noncompliance with CPAP treatment Obstructive sleep apnea hypopnea, severe Paroxysmal atrial fibrillation Infection due to COVID-19 virus 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 Mother No problems noted. Brother Hypertension Atrial fibrillation Maternal Grandmother Breast cancer Social History Housing: House Patient Tobacco Use Status: Former Tobacco user Years Smoked: 15 yrs e-Cigarette/Vaping Use: Never Used service: No Current occupational status: retired Cognitive needs: No Hearing needs: No Vision needs: Yes Questionnaire PHQ-9 Over the last 2 weeks, how often have you been bothered by any of the following problems? 1. Little interest or pleasure in doing things: not at all 2. Feeling down, depressed, or hopeless: not at all 3. Trouble falling or staying asleep, or sleeping too much: not at all 4. Feeling tired or having little energy: several days 5. Poor appetite or overeating: several days 6. Feeling bad about yourself - or that you are a failure or have let yourself or your family down: several days 7. Trouble concentrating on things, such as reading the newspaper or watching television: not at all 8. Moving or speaking so slowly that other people could have noticed. Or the opposite - being so fidgety or restless that you have been moving around a lot more than usual: not at all 9. Thoughts that you would be better off or of hurting yourself in some way: not at all Total score: 3 Depression Screening Interpretation: Negative Depression Screening Done: Yes 57946 - PHQ-9 Billing: Yes Source: Developed by Drs. Jay Sommer, Roz Mckee, Wally Shabazz and colleagues, with an educational bernardino from [employer]. Thrive Questionnaire Date Thrive assessed: 08/21/24 I am a: Patient What is your living situation today?: I have a steady place to live Within the past 12 months, did the food you bought not last and you didn't have the money to get more?: Never true Within the past 12 months, did you worry whether your food would run out before you got money to buy more?: Never true Do you have trouble paying for medicines?: No Do you have trouble getting transportation to medical appointments?: No Do you have trouble paying your heating and electricity bill?: No Do you have trouble taking care of your child, family member or friend?: No Do you have trouble with day-to-day activities such as bathing, preparing meals, shopping, managing finances, etc.?: No Are you currently unemployed and looking for a job?: No Are you interested in more education?: No Please select the resources that you would like help with: None Currently or been in a relationship where the following occur: No concerns reported THRIVE Score: 0 AUDIT C Alcohol Use Questionnaire (AUDIT-C) 1. How often do you have a drink containing alcohol?: Monthly or less 2. How many drinks containing alcohol do you have on a typical day when you are drinking?: 1 or 2 3. How often do you have six or more drinks on one occasion?: Never Total Score: 1 FENG-7 AMB Questionnaire FENG-7 Date FENG - 7 assessed: 08/21/24 Feeling nervous, anxious, or on edge: 1 = Several days Not being able to stop or control worryin = Several days Worrying too much about different things: 1 = Several days Trouble relaxin = Several days Being so restless that it is hard to sit still: 0 = Not at all Becoming easily annoyed or irritable: 1 = Several days Feeling afraid as if something awful might happen: 0 = Not at all Total FENG-7 score (0-4 normal; 5-9 mild; 10-14 moderate; 15-21 severe): 5 Source: Developed by Drs. Jay Sommer, Roz Mckee, Wally Shabazz and colleagues, with an educational bernardino from [employer]. FENG-7 Assessment Billing FENG-7 Assessment Tool: FENG-7 Assessment 09316 Physical exam (Primary Care) Vital Signs: Last Vital Signs Temp 97.5 F 08/21/24 08:08 Pulse 66 08/21/24 08:08 Resp 17 08/21/24 08:08 BP 112/70 08/21/24 08:08 Pulse Ox 96 08/21/24 08:08 Oxygen Delivery Method Room Air 08/21/24 08:08 BMI result Body Mass Index 41.5 Tobacco/Smoking Status: Tobacco use Status Tobacco use date assessed 08/21/24 08/21/24 08:12 Patient Tobacco Use Status Former Tobacco user 08/21/24 08:12 e-Cigarette/Vaping Use Never Used 08/21/24 08:12 PHQ-9: PHQ-9 Score PHQ-9: Total score 3 08/21/24 08:12 Depression Screening Interpretation: Negative Thrive Assessment: Date of Thrive Assessment Date Thrive assessed 08/21/24 08/21/24 08:12 Currently or been in a relationship where the following occur: No concerns reported Const Other: Alert oriented x3, no acute distress noted ambulatory with normal gait Nutritional Appearance: obese morbidly obese HENVA Other: Tenderness on palpation over frontal and maxillary sinus Ears: external ears normal, TM's normal bilaterally and EAC's normal General nose exam: Normal external nose present and Abnormal mucous membranes and turbinates present (Swollen nasal mucosa) erythematous Mouth: Normal oral and palatal mucosa present, oropharynx normal and moist mucous membranes Neck Neck: Yes full ROM, Yes no lymphadenopathy and Yes supple Thyroid: Thyroid normal (Nonpalpable) Resp Auscultation: clear to auscultation bilaterally Cardio Other: S1-S2 present regular rate and rhythm GI Other: Normal bowel sounds, soft, nontender, obese, no mass palpated Coding Level of Care Code Est Pt Level 4 (88225) Complex EM visit Add On G2211 Diagnoses Acute sinusitis J01.90 Essential hypertension I10 Morbid obesity E66.01 Thyroid nodule greater than or equal to 1 cm in diameter incidentally noted on imaging study E04.1 Anticoagulated on Xarelto Z79.01 Need for antibiotic prophylaxis for dental procedure Z79.2 Nasal congestion R09.81 Additional Codes PHQ-9 - 48118 - PHQ-9 Billing: Yes ([id number]) FENG-7 Assessment Billing - FENG-7 Assessment Tool: FENG-7 Assessment 54213 ([id number]) Assessment & Plan Assessment & Plan (1) Acute sinusitis: Code(s): J01.90 - Acute sinusitis, unspecified Plan: Prescription sent for amoxicillin-clavulanic acid, 875 mg-125 mg to take 1 every 12 hours for 10 days. Take it always with food. (2) Essential hypertension: Code(s): I10 - Essential (primary) hypertension Category: Medical Plan: Blood pressure at goal of less than 130/80. Continue with current medication. Reinforced importance of following a low sodium diet, getting regular exercise, and lowering stress levels. (3) Morbid obesity: Code(s): E66.01 - Morbid (severe) obesity due to excess calories Category: Medical Plan: Patient has been referred by her performance management consultant to weight management, will check fasting glucose and lipids (4) Thyroid nodule greater than or equal to 1 cm in diameter incidentally noted on imaging study: Code(s): E04.1 - Nontoxic single thyroid nodule Category: Medical Plan: Will check TSH (5) Anticoagulated on Xarelto: Code(s): Z79.01 - penitentiary (current) use of anticoagulants Category: Medical Plan: CBC with differential ordered (6) Need for antibiotic prophylaxis for dental procedure: Code(s): Z79.2 - 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 (7) Nasal congestion: Code(s): R09.81 - Nasal congestion Category: Medical Plan: Refill sent for fluticasone nasal spray, instill 1-2 sprays per nostril twice a day as needed. Continue with cetirizine 10 mg at bedtime. Orders: Orders Basic Metabolic Panel Fasting Today E04.1 - Nontoxic single thyroid nodule, E66.01 - Morbid (severe) obesity due to excess calories, I10 - Essential (primary) hypertension, Z79.01 - termite control servicer (current) use of anticoagulants Aspartate Amino Transferase Today E04.1 - Nontoxic single thyroid nodule, E66.01 - Morbid (severe) obesity due to excess calories, I10 - Essential (primary) hypertension, Z79.01 - termite control servicer (current) use of anticoagulants TSH reflex Free T4 Today E04.1 - Nontoxic single thyroid nodule, E66.01 - Morbid (severe) obesity due to excess calories, I10 - Essential (primary) hypertension, Z79.01 - penitentiary (current) use of anticoagulants Alanine Aminotransferase Today E04.1 - Nontoxic single thyroid nodule, E66.01 - Morbid (severe) obesity due to excess calories, I10 - Essential (primary) hypertension, Z79.01 - penitentiary (current) use of anticoagulants Complete Blood Count Auto Diff Today E04.1 - Nontoxic single thyroid nodule, E66.01 - Morbid (severe) obesity due to excess calories, I10 - Essential (primary) hypertension, Z79.01 - termite control servicer (current) use of anticoagulants Lipid Panel Today E04.1 - Nontoxic single thyroid nodule, E66.01 - Morbid (severe) obesity due to excess calories, I10 - Essential (primary) hypertension, Z79.01 - termite control servicer (current) use of anticoagulants Vitamin D 25-OH Total Today E04.1 - Nontoxic single thyroid nodule, E66.01 - Morbid (severe) obesity due to excess calories, I10 - Essential (primary) hypertension, Z79.01 - termite control servicer (current) use of anticoagulants Medications: New amoxicillin-pot clavulanate 875-125 mg 1 tab PO Q12H 10 days 20 tabs 0RF J01.90 - Acute sinusitis, unspecified amoxicillin Take 4 capsules 1 hour Before dental procedure 2,000 mg (4 x 500 mg) PO ONCE 4 caps 4RF Z96.653 - Presence of artificial knee joint, bilateral Refilled fluticasone propionate 50 mcg/actuation 1 spray intranasal DAILY 16 mL 5RF
--- OUTSIDE RECORDS SUMMARY | 2024-08-21 08:06 | XMS_ITS | Clinical Summary ---
Author Organization 300 [facility] Address [address] [place] [address] Phone Care Team Providers Care Package Lift Operator Name Role Phone Eli Wills MD Primary Care Provider Allergies Active Allergy Reactions Criticality Noted Date Comments Atorvastatin Calcium 06/12/2024 Lisinopril 06/12/2024 Medications ascorbic acid (VITAMIN C) 1,000 mg tablet Take 1 Tab by mouth daily. Active gabapentin (NEURONTIN) 400 mg capsule Take 400 mg by mouth 4 times daily. Active rivaroxaban (Xarelto) 20 mg tablet Take 20 mg by mouth daily. 08/09/19 24 Active TURMERIC ORAL Take by mouth daily. Active CHOLECALCIFERO L, VITAMIN D3, ORAL VITAMIN D, CHOLECALCIF DONTE, OR Take 1 Tab by mouth daily Active vitamin E, dl,tocopheryl acet, (vitamin E, dl, acetate,) 45 mg (100 unit) capsule Take 1 Cap by mouth daily. Active sotaloL (BETAPACE) 120 mg tablet Take 1 tablet (120 mg total) by mouth 2 (two) times a day. 180 tablet 2 07/25/19 25 026 Active furosemide (LASIX) 20 mg tablet Take 1 tablet (20 mg total) by mouth 1 (one) time each day. 90 each 2 07/25/19 25 026 Active losartan (COZAAR) 100 mg tablet TAKE 1 TABLET DAILY 90 tablet 3 08/06/19 Active furosemide (LASIX) 20 mg tablet TAKE 1 TABLET DAILY 01/30/20 24 025 Discontinued(Re order) losartan (COZAAR) 100 mg tablet TAKE 1 TABLET DAILY 08/13/19 24 025 Discontinued(Re order) sotaloL (BETAPACE) 120 mg tablet Take 1 Tablet by mouth 2 times daily. 12/19/19 24 025 Discontinued(Re order) losartan (COZAAR) 100 mg tablet Take 1 tablet (100 mg total) by mouth 1 (one) time each day. 90 each 2 07/25/19 025 Discontinued Active Problems Problem Noted Date Diagnosed Date Encounter for loop recorder at end of battery li fe 07/24/2024 Fatigue 08/09/2023 SOB (shortness of breath) 06/21/2022 Chronic diastolic heart failure ([facility] V24, CM S/[facility] V28) 08/24/2021 Essential hypertension 07/29/2020 Morbid obesity ([facility] V24, CMS/[facility] V28) 2020 RONEN (obstructive sleep apnea) 07/29/2020 PAF (paroxysmal atrial fibri llation) ([facility] V24, CMS/[facility] V28) 07/29/2020 Encounters Date Type Department Care Team Description 08/05/2024 Telephone [facility] - [address] [place] [phone] Julia Ham MD Procedure (ILR Removal ) 07/24/2024 8:40 AM EDT Office Visit [facility] Cardiology [facility] - [address] [place] [phone] Rupali Vazquez PA PAF (paroxysmal atrial fibrillation) ([facility] V24, CMS/[facility] V28) (Primary Dx); Essential hypertension; RONEN (obstructive sleep apnea); Chronic diastolic heart failure (CMS/HCC V24, CMS/HCC V28); Morbid obesity ([facility]/HCC V24, CMS/HCC V28); Encounter for loop recorder at end of battery life from Last 3 Months Immunizations Name Administration Dates Next Due [facility] SARS-CoV-2 COVID-19, mRNA, LNP-S, preservative free 09/04/2020,08/14/2020 Social History Tobacco Use Types Packs/Day Years Used Date Smoking Tobacco: Former Cigarettes Q uit: 07/30/1995 Smokeless Tobacco: Never Tobacco Cessation:Counseling Given: Not Answered Alcohol Use Standard Drinks/Week Comments Yes 0 (1 standard drink = 0.6 oz pur e alcohol) Comments Unknown Sex and Gender Information Value Date Recorded Sex Assigned at Not on file Legal Sex Female 4:14 PM EST Gender Identity Not on file Sexual Orientation Not on file Obstetrics History Last Filed Vital Signs Vital Sign Reading Time Taken Comments Blood Pressure 140/82 07/24/2024 8:33 AM EDT Pulse 57 07/24/2024 8:33 AM EDT Temperature - - Respiratory Rate - - Oxygen Saturation 96% 07/24/2024 8:33 AM EDT Inhaled Oxygen Concentration - - Weight 131 kg (288 lb) 07/24/2024 8:33 AM EDT Height 175.3 cm (5' 9 ) 07/24/2024 8:33 AM EDT Body Mass Index 42.53 07/24/2024 8:33 AM EDT Plan of Treatment Health Maintenance Due Date Last Done Comments Pneumococcal Vaccine: 50+ Years (1 of 2 - PCV) 1966 Zoster Vaccines (1 of 2) 1997 RSV Immunization Adult Patients (1 - 1-dose 75+ series) 2022 Cholesterol Screening (Lipid Panel) 04/15/2022 Depression Screening 04/15/2022 Falls Risk Assessment 04/15/2022 Hepatitis C Screening 04/15/2022 Medicare Annual Wellness Visit 04/15/2022 Osteoporosis Screening (Bone Density Screening) 04/15/2022 Social Influencers of Health Screening 04/15/2022 Hypertension/CHF/CAD Annual BMP Blood Test 04/16/2022 COVID-19 Vaccine (3 - 2023-2 5 season) 2024 09/04/2020, 08/14/2020 DTaP,Tdap,and Td Vaccines (2 - Td or Tdap) 10/28/2024 10/28/2014 Influenza Vaccine (Season Ended) 2025 HIB Vaccines Aged Out No longer eligi ble based on patient's age to complete this topic HPV Vaccines Aged Out No longer eligi ble based on patient's age to complete this topic Hepatitis A Vaccines Aged Out No long er eligible based on patient's age to complete this topic Hepatitis B Vaccines Aged Out No long er eligible based on patient's age to complete this topic IPV Vaccines Aged Out No longer eligi ble based on patient's age to complete this topic MMR Vaccines Aged Out No longer eligi ble based on patient's age to complete this topic Meningococcal ACWY Vaccine Aged Out N o longer eligible based on patient's age to complete this topic Meningococcal B Vaccine Aged Out No l onger eligible based on patient's age to complete this topic RSV Immunization Patients Under 20 months Aged Out No longer eligible b ased on patient's age to complete this topic Varicella Vaccines Aged Out No longer eligible based on patient's age to complete this topic Procedures Procedure Name Priority Date/Time Associated Diagnosis Comments ECG 12-LEAD Routine 07/24/2024 8:58 AM EDT PAF (paroxysmal atrial fibrillation) (CMS/HCC V24, CMS/HCC V28) from Last 3 Months Results * ECG 12 lead (07/24/2024 8:58 AM EDT) Ventricular Rate ECG 57 BPM GEMUSE Atrial Rate 57 BPM GEMUSE P-R Interval 190 ms GEMUSE QRS Duration 114 ms GEMUSE Q-T Interval 456 ms GEMUSE QTc 443 ms GEMUSE P Wave Menan 74 degrees GEMUSE R Menan -43 degrees GEMUSE T Menan 10 degrees GEMUSE ECG Interpretation Sinus bradycardia with Premature supraventricular complexes Left axis deviation When compared with ECG of 12-SEP-2023 12:40, Premature ventricular complexes are no longer Present Premature supraventricular complexes are now Present Confirmed by NITHYA HAM ([id number]) on 07/29/2024 12:09:08 PM GEMUSE 07/24/2024 8:43 AM EDT 07/29/2024 12:09 PM EDT us Rupali MOCTEZUMA ECG ORDERABLES Edited Result - Final GEMUSE from Last 3 Months Insurance [employer] MEDICARE ADVANTAGE Advance Directives Documents on File Type Date Recorded Patient It Field Technician Expl anation Health Care Decision (hx) 08/24/2015 AD HUGHES DIRECTIVE Health Care Decision (hx) 08/24/2015 AD HUGHES DIRECTIVE Health Care Decision (hx) 08/24/2015 AD HUGHES DIRECTIVE Health Care Decision (hx) 08/24/2015 AD HUGHES DIRECTIVE Health Care Decision (hx) 08/24/2015 AD HUGHES DIRECTIVE Health Care Decision (hx) 08/24/2015 AD HUGHES DIRECTIVE Health Care Decision (hx) 08/24/2015 AD HUGHES DIRECTIVE Health Care Decision (hx) 08/24/2015 AD HUGHES DIRECTIVE Health Care Decision (hx) 08/24/2015 AD HUGHES DIRECTIVE Health Care Decision (hx) 08/24/2015 AD HUGHES DIRECTIVE Health Care Decision (hx) 08/24/2015 AD HUGHES DIRECTIVE Health Care Decision (hx) 08/24/2015 AD HUGHES DIRECTIVE Care Teams Package Lift Operator Relationship Specialty Start Date End Date Eli Wills MD [address] [place] [address] PCP - General Internal Medicine 05/17/20
[2024-08-21 08:08] VITALS: BP 112/70; PULSE 66; RESP 17; TEMP 36.4; O2SAT 96; BMI 41.5
== END 2024-08-21 09:31 | disposition home or self-care (01) ==
LOC: HO.HMCC 08:00
PROVIDERS: PCP Internal Medicine; Visit Provider Internal Medicine
DX: J01.90 Acute sinusitis, unspecified (principal); I10 Essential (primary) hypertension; E66.01 Morbid (severe) obesity due to excess calories; Z68.41 Body mass index [BMI] 40.0-44.9, adult; E04.1 Nontoxic single thyroid nodule; Z79.01 Long term (current) use of anticoagulants; Z79.2 Long term (current) use of antibiotics; R09.81 Nasal congestion

== ENCOUNTER 2025-01-13 08:29 | Outpatient (AMB) | payer MEDICARE, SELFPAY ==
--- NOTE | 2025-01-13 08:34 | MHC.OFFVIS ---
Vital Signs 01/13/25 08:34 Height 5 ft 10 in Intake Visit Reasons: 6 Months Allergies lipitor Allergy (Unknown, Uncoded 01/13/25 08:37) muscle pain Medication List - Last Reconciled 01/13/25 by Caryn De Oliveira CNP acetaminophen ER (Tylenol Arthritis Pain) 1,300 mg PO Q8H PRN albuterol sulfate 90 mcg/actuation 2 puffs inhalation Q6H PRN amlodipine 10 mg PO DAILY calcium carb,gluc-mag gluc,ox 500 mg calcium- 250 mg (Calcium Magnesium) tabs PO cholecalciferol (vitamin D3) 50 mcg PO DAILY cyanocobalamin (vitamin B-12) 1,000 mcg PO DAILY fluticasone propionate 50 mcg/actuation 1 spray intranasal DAILY furosemide (Lasix) 20 mg PO DAILY gabapentin mg PO QID losartan 100 mg PO DAILY pyridoxine (vitamin B6) 100 mg PO ONCE rivaroxaban (Xarelto) 20 mg PO DAILY sotalol 120 mg PO BID HPI Comments Details: 79-year-old woman with obesity, a fibb s/p cardioversion and ablation procedure, HTN, OP, and peripheral neuropathy and associated pain treated with gabapentin. She was doing okay. She was having some more numbness and tingling up to ankles. She had some numbness to knees that has been ongoing since knee replacements (R TKR 06/2023 and L TKR 10/2023). Balance was off at times, but no falls. She was still going for walks and hikes with her dog for 60-90 minutes/day with walking sticks. She was using cane for longer distances. Pain was controlled with gabapentin. Sleep was okay. [facility] Medical History (Updated 01/13/25 @ 08:37 by Caryn De Oliveira CNP) Need for antibiotic prophylaxis for dental procedure Anticoagulated on Xarelto Thyroid nodule greater than or equal to 1 cm in diameter incidentally noted on imaging study Immunization refused Refused pneumococcal vaccination History of atrial fibrillation Tick bite Hx of osteopenia Post-nasal drainage History of cardioversion Peripheral neuropathy Morbid obesity Essential hypertension Noncompliance with CPAP treatment Obstructive sleep apnea hypopnea, severe Paroxysmal atrial fibrillation Infection due to COVID-19 virus 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 Mother No problems noted. Brother Hypertension Atrial fibrillation Maternal Grandmother Breast cancer Social History Housing: House Patient Tobacco Use Status: Former Tobacco user Years Smoked: 15 yrs e-Cigarette/Vaping Use: Never Used service: No Current occupational status: retired Cognitive needs: No Hearing needs: No Vision needs: Yes Review of Systems Const Denies chills, Denies daytime sleepiness, Reports difficulty sleeping, Denies fatigue, Denies fever(s), Denies frequent falls, Denies headache(s), Denies increased appetite, Denies poor appetite, Denies snoring, Denies weakness, Denies weight gain and Denies weight loss Eyes Denies loss of vision ENT Denies vertigo, Denies dizziness and Denies headache(s) Card Denies chest pain at rest, Denies chest pain with activity, Denies syncope, Denies leg edema and Denies palpitations Resp Denies snoring GI Denies constipation, Denies heartburn, Denies diarrhea and Denies nausea Denies urinary frequency, Denies urinary incontinence and Denies urinary urgency Musc Denies abnormal gait, Reports numbness and Reports tingling Skin/Breast Denies dry skin and Denies rash Neuro Denies abnormal gait, Denies vertigo, Denies dizziness, Denies syncope, Denies frequent falls, Denies headache(s), Denies lack of coordination, Denies loss of vision, Denies memory loss, Reports numbness, Denies restless legs, Denies seizure-like activity, Reports tingling, Denies paresthesias, Denies tremor(s) and Denies weakness Psych Denies anxiety, Denies depression, Denies auditory hallucinations, Denies memory loss, Denies visual hallucinations and Denies suicidal ideation Endo Denies fatigue and Denies palpitations Physical Exam Const Other: General Appearance:? normal, in no acute distress. Skin:? no rashes, no significant birthmarks. Heart:? S1, S2 normal, no murmurs. Lungs:? clear anteriorly and posteriorly. Extremities:? no edema. Psych:? alert, oriented, cognitive function intact, cooperative with exam. Neuro Other: Mental Status:?Normal attention, orientation, memory and affect.? Cranial Nerves:?Pupils are equal, round and reactive to light. External occular muscles are intact. Visual salcido are full. Face is symmetrical. Facial sensations are normal. Tongue is midline. Palate elevates symmetrically. Shoulder shrugging is normal. Hearing to bedside conversation is normal. Coordination:?No ataxia,?no titubation.? Gait Exam: With cane. Cerebellar Signs:?[id number] ais okay. Extrapyramidal System:?No tremor, rigidity with normal facial expressions.? Pronator Drift:?Not present.? Involuntary Movements:?No tremors seen.? Speech:?Normal.? Results Reviewed Results Reviewed: EMG/NCS in 2005 LEs at office: WNL EMG/NCS in 2008 LEs at office: WNL EMG/NCS in September 2016 LEs: mild to mod axonal PN Assessment & Plan Assessment & Plan (1) Peripheral neuropathy: Comment: Followed by Dr. Andujar Code(s): G62.9 - Polyneuropathy, unspecified Category: Medical Qualifiers: Peripheral neuropathy type: polyneuropathy, unspecified Qualified Code(s): G62.9 - Polyneuropathy, unspecified Plan: Continue gabapentin 400mg 1 capsule four times a day. Continue to stay physically active. Medications: Changed From gabapentin PO QID To gabapentin 400 mg PO QID 360 caps 1RF 90 days Coding Level of Care Code Est Pt Level 4 (08187) Diagnoses Peripheral polyneuropathy G62.9 Peripheral neuropathy type: polyneuropathy, unspecified
--- OUTSIDE RECORDS SUMMARY | 2025-01-13 09:32 | XMS_ITS | Clinical Summary ---
Author Organization [address] [place] [address] [place] [id number] Phone Care Team Providers Care Probation And Parole Officer Name Role Phone Eli Wills MD Primary Care Provider [phone] Allergies Active Allergy Reactions Criticality Noted Date Comments Atorvastatin Calcium 06/12/2024 Lisinopril 06/12/2024 Medications ascorbic acid (VITAMIN C) 1,000 mg tablet Take 1 Tab by mouth daily. Active gabapentin (NEURONTIN) 400 mg capsule Take 400 mg by mouth 4 times daily. Active rivaroxaban (Xarelto) 20 mg tablet Take 20 mg by mouth daily. 08/09/2023 Active TURMERIC ORAL Take by mouth daily. Active CHOLECALCIFEROL , VITAMIN D3, ORAL VITAMIN D, CHOLECALCIFE ROL, OR Take 1 Tab by mouth daily Active vitamin E, dl,tocopheryl acet, (vitamin E, dl, acetate,) 45 mg (100 unit) capsule Take 1 Cap by mouth daily. Active sotaloL (BETAPACE) 120 mg tablet Take 1 tablet (120 mg total) by mouth 2 (two) times a day. 180 tablet 2 07/24/2024 Active losartan (COZAAR) 100 mg tablet TAKE 1 TABLET DAILY 90 tablet 3 08/05/2024 Active amLODIPine (NORVASC) 10 mg tablet TAKE 1 TABLET DAILY 100 tablet 3 10/08/2024 Active furosemide (LASIX) 20 mg tablet TAKE 1 TABLET DAILY 90 tablet 2 12/08/2024 Active Active Problems Problem Noted Date Diagnosed Date Encounter for loop recorder at end of battery li fe 07/24/2024 Fatigue 08/09/2023 SOB (shortness of breath) 06/21/2022 Chronic diastolic [place] [place] [facility] V28) 08/24/2021 Essential hypertension 07/29/2020 Morbid obesity ([facility] [place] [facility] [place]) 2020 RONEN (obstructive sleep apnea) 07/29/2020 PAF (paroxysmal atrial fibri llation) ([facility] [place], [facility] [place]) 07/29/2020 Immunizations Name Administration Dates Next Due [email or web address] SARS-CoV-2 COVID-19, mRNA, LNP-S, preservative free 09/04/2020,08/14/2020 [...] series) 2022 Cholesterol Screening (Lipid Panel) 04/15/2022 Falls Risk Assessment 04/15/2022 Hepatitis C Screening 04/15/2022 Medicare Annual Wellness Visit 04/15/2022 Osteoporosis Screening (Bone Density Screening) 04/15/2022 Social Influencers of Health Screening 04/15/2022 Hypertension/CHF/CAD Annual BMP Blood Test 04/16/2022 Depression Screening 05/07/2024 DTaP,Tdap,and Td Vaccines (2 - Td or Tdap) 10/28/2024 10/28/2014 COVID-19 Vaccine (3 - 2024-2 6 season) 2025 09/04/2020, 08/14/2020 Influenza Vaccine (#1) 2025 HIB Vaccines Aged Out No longer [...] on patient's age to complete this topic Insurance [employer] MED[employer]ARE [employer]AGE Advance Directives Documents on File Type Date Recorded 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
== END 2025-01-13 08:53 | disposition home or self-care (01) ==
LOC: HO.HSM 08:30
PROVIDERS: PCP Internal Medicine; Referring Provider Internal Medicine; Visit Provider Registered Nurse
DX: G62.9 Polyneuropathy, unspecified (principal)
CPT/HCPCS: 99214

== ENCOUNTER → 2025-01-13 08:29 | Outpatient (BNVA) | payer MEDICARE, SELFPAY | PROVIDERS: PCP Internal Medicine; Referring Provider Internal Medicine; Visit Provider Registered Nurse | DX: G62.9 Polyneuropathy, unspecified (principal) | CPT/HCPCS: 99212 ==

== ENCOUNTER 2025-03-26 14:10 | Outpatient (REF) | payer MEDICARE, SELFPAY ==
--- NOTE | ~2025-03-26 | MM_ITS ---
EXAMINATION: MM DIAGNOSTIC DIGITAL BREAST TOMOSYNTHESIS, BILATERAL CLINICAL INFORMATION: Two-year follow--up for bilateral scattered punctate and amorphous calcifications. COMPARISON: Mammography: Comparison is made with relevant prior exams. TECHNIQUE: Digital breast mammography with tomosynthesis is performed in both the craniocaudal and mediolateral oblique views along with computer-aided detection (CAD). FINDINGS: There are scattered areas of fibroglandular density. Grouped punctate and amorphous calcifications in the upper outer left breast are not significantly changed from prior magnification views dating back for 2 years and therefore benign. Grouped amorphous and punctate calcifications in the upper-outer left breast are not definitely changed from prior magnification views dating back for 2 years and therefore benign. Cardiac loop recorder in the upper inner left breast posterior depth. There are no significant masses, abnormal calcifications, or other abnormalities. Results are provided to the patient at time of visit by the technologist. MM/MM tomosynthesis diagnostic BI IMPRESSION: No mammographic evidence of malignancy. ASSESSMENT: BI-RADS Category 2: Benign RECOMMENDATION: 1 year F/U This patient's information was entered into a reminder system with a target due date for their next mammogram. Electronically signed by: Mayelin aDlton DO 03/27/2025 08:22 AM [facility]
--- OUTSIDE RECORDS SUMMARY | 2025-03-26 19:34 | XMS_ITS | Clinical Summary ---
Author Organization [address] [place] [address] [place] [phone] Phone Care Team Providers Care Hoister Name Role Phone Eli Wills MD Primary Care Provider [phone] Allergies Active Allergy Reactions Criticality Noted Date [...] of breath) 06/21/2022 [place] diastolic [place] [place] [facility] V28) 08/24/2021 Essential hypertension 07/29/2020 Morbid obesity [place] [place] [facility] [place] 2020 RONEN (obstructive sleep apnea) 07/29/2020 PAF (paroxysmal atrial fibri llation) [place] [place] [facility] [place]) 07/29/2020 Immunizations Immunization Administration Dates Next Due [employer] SARS-CoV-2 COVID-19, mRNA, LNP-S, preservative free 09/04/2020,08/14/2020 Social History Tobacco Use Types Packs/Day Years Used Date Smoking Tobacco: Former Cigarettes 0 Q uit: 07/30/1995 Smokeless Tobacco: Never Tobacco [...] Documents on File Type Date 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
== END 2025-03-26 14:11 | disposition home or self-care (01) ==
LOC: HO.MAMMO 14:10
PROVIDERS: PCP Internal Medicine; Visit Provider Internal Medicine
DX: R92.1 Mammographic calcification found on diagnostic imaging of breast (principal)
CPT/HCPCS: 77062; 77066

== ENCOUNTER → 2025-03-26 14:30 | Outpatient (BNV) | payer MEDICARE, SELFPAY | PROVIDERS: PCP Internal Medicine; Visit Provider Internal Medicine | DX: R92.8 Other abnormal and inconclusive findings on diagnostic imaging of breast (principal) | CPT/HCPCS: 77066; G0279 ==